=== PATIENT | female | born 2000 | race African-American/Black ===

== ENCOUNTER 2020-11-06 10:35 | Emergency (ER) | payer OTHER, SELFPAY ==
[2020-11-06] MEDS ORDERED: Ketorolac Tromethamine 30 MG/ML VIAL ONE (11:39)
[2020-11-06] MEDS ORDERED: Cyclobenzaprine 10 MG TAB ONE (11:39)
== END 2020-11-06 13:13 | disposition home or self-care (01) ==
LOC: CSHERS 10:35
DX: S09.90XA Unspecified injury of head, initial encounter (principal); M25.561 Pain in right knee; M25.552 Pain in left hip; M54.2 Cervicalgia; M54.5 Low back pain; V89.2XXA Person injured in unspecified motor-vehicle accident, traffic, initial encounter
CPT/HCPCS: 70450; 71045; 72100; 72125; 96372; J1885